=== PATIENT | male | born 2000 | race African-American/Black ===

== ENCOUNTER 2025-06-09 18:14 | Emergency (ER) | payer OTHER, SELFPAY ==
[~2025-06-09 18:14] MED LIST: Iopamidol 300 61% 100 ML VIAL FS ONE
[2025-06-09 18:55] LABS: #Basophils 0.03 10x3/uL (0.0-0.2); #Eosinophils 0.09 10x3/uL (0.0-0.5); #Monocytes 0.50 10x3/uL (0.0-1.1); #Neutrophils 1.43 10x3/uL (1.5-8.4); %Basophils 0.8 % (0.0-2.0); %Eosinophils 2.3 % (0.0-6.0); %Lymphocytes 47.7 % (18.0-47.0); %Monocytes 12.8 % (0.0-10.0); %Neutrophils 36.4 % (40.0-75.0); Hematocrit 45.4 % (38.8-50.0); Hemoglobin 14.4 g/dL (13.5-17.5); Mean Corpuscular Hemoglobin 25.7 pg (27.0-33.0); Mean Corpuscular Volume 81.1 fL (81.2-95.1); Platelet Count 256 10x3/uL (150-450); Red Blood Cell (RBC) Count 5.60 10x6/uL (4.32-5.72); White Blood Cell (WBC) Count 3.92 10x3/uL (3.5-10.5)
[2025-06-09 19:07] LABS: ALT (SGPT) 20 U/L (Less than 45); AST (SGOT) 33 U/L (11-34); Albumin 3.8 g/dL (3.1-4.5); Alkaline Phosphatase 68 U/L (40-110); Anion Gap 13 mmol/L (10-20); BUN (Urea Nitrogen) 15 mg/dL (8.9-20.6); Bilirubin, Total 0.3 mg/dL (0.3-1.2); Calc. Creatinine Clearance 0 mL/min (70-130); Calcium 8.5 mg/dL (7.8-10.44); Carbon Dioxide 25 mmol/L (22-29); Chloride 103 mmol/L (98-107); Globulin 3.3 g/dL (2.4-3.5); Glucose 85 mg/dL (70-105); Lipase 47 U/L (8-78); Potassium 4.1 mmol/L (3.5-5.1); Sodium 137 mmol/L (136-145)
[2025-06-09] MEDS ORDERED: Ondansetron PF 4 MG/2 ML Vial ONE (19:24)
== END 2025-06-09 20:46 | disposition home or self-care (01) ==
LOC: CSHERS 18:14
DX: K63.89 Other specified diseases of intestine (principal)
CPT/HCPCS: 74177; 80053; 83690; 85025; 96374; 96375; J2270; J2405; Q9967